=== PATIENT | female | born 1995 | race African-American/Black ===

== ENCOUNTER 2017-09-30 13:40 | Emergency (ER) | payer SELFPAY ==
[2017-09-30 14:00] VITALS: BP 147/94; PULSE 94; RESP 18; TEMP 97.9; O2SAT 97
--- NOTE | 2017-09-30 14:14 | EDPHY ---
H & P Stated Complaint: 1 week upper abd pain; also c/o cough causing back pain since Friday Time Seen by Provider: 09/30/17 13:52 HPI/ROS: Chief Complaint: Cough, abdominal pain HPI: 22-year-old woman who is visiting from [place] for the last 4 days. She has had some shortness of breath with a cough productive of some greenish sputum. She has also had some epigastric abdominal pain intermittently, primarily after she eats or when she lays down. 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 Does not feel like her pancreatitis pain. She is currently without any pain at this time. She has not been taking any medications. No fevers or chills. No nausea or vomiting or diarrhea. She is feeling slightly short of breath but has never been to this helped to before. No chest pain. Some mild upper back pain when she coughs. No wheezing. She has had ultrasounds and workup by the doctors at [place] to have not find a cause for her pancreatitis. My ROS PMH: Pancreatitis Social History: Positive smoking, occasional alcohol, no recreational drug use Family History: non-contributory Physical Exam: Gen: Awake, Alert, No Distress HEENT: Nose: no rhinorrhea Eyes: PERRLA, EOMI Mouth: Moist mucosa Neck: Supple, no JVD Chest: nontender, lungs clear to auscultation Heart: S1, S2 normal, no murmur Abd: Soft, non-tender, no guarding Back: no CVA tenderness, no midline tenderness Ext: no edema, non-tender Skin: no rash Neuro: CN II-XII intact, Sensation grossly intact, Strength 5/5 in bilateral upper and lower extremities - Personal History LMP (Females 10-55): Over 28 Days Ago Current Tetanus/Diphtheria Vaccine: No - Medical/Surgical History Other PMH: Pancreatitis - Social History Smoking Status: Never smoked Constitutional: Initial Vital Signs Temperature (C) 36.6 C 09/30/17 13:44 Heart Rate 94 09/30/17 13:44 Respiratory Rate 18 09/30/17 13:44 Blood Pressure 147/94 H 09/30/17 13:44 O2 Sat (%) 97 09/30/17 13:44 O2 Delivery Mode Room Air Allergies/Adverse Reactions: No Known Allergies Allergy (Unverified 09/30/17 13:48) Home Medications: Medication Instructions Recorded NK [No Known Home Meds] 09/30/17 Medical Decision Making ED Course/Re-evaluation: 22-year-old visiting from out of town with cough productive of greenish sputum and some epigastric abdominal pain. Lungs are clear. Vital signs and oxygen saturations are appropriate. No evidence of pneumonia at this time. She has not have any asthma or wheezing. Symptoms consistent with viral upper respiratory infection. He regards to her abdominal pain. Her abdomen is soft and benign. She has a history of pancreatitis in the past but does not have any symptoms to suggest this at this time. She is having pain primarily after she has her lays down. This is consistent more with a possible gastritis or peptic ulcer disease. She has had negative ultrasounds in the past year of her gallbladder. I have recommended that she treat her symptoms symptomatically. She is leaving town to return home tomorrow. I have recommended over-the- counter cough and cold medications. She should also start taking an over-the- counter antacid such as Pepcid to see if this helps her symptoms. She will follow up with her doctor when she returns home to [place]. Departure - Departure Disposition: Home, Routine, Self-Care Clinical Impression: Viral upper respiratory illness, GERD (gastroesophageal reflux disease) Condition: Good Instructions: Upper Respiratory Infection (ED), Gastroesophageal Reflux Disease (ED) Additional Instructions: You may take [id number] cough and cold medicine according to package instructions for your cough. Start taking [id number] antacid medications such as famotidine for your reflux symptoms. Follow up with a primary care physician when you return home to [place]. Return to the emergency department for increasing cough, fevers, chills, worsening constant abdominal pain, uncontrolled nausea or vomiting, or any other concerns.
== END 2017-09-30 14:26 | disposition home or self-care (01) ==
LOC: CED 13:40
DX: K21.9 Gastro-esophageal reflux disease without esophagitis (principal); J06.9 Acute upper respiratory infection, unspecified; F17.200 Nicotine dependence, unspecified, uncomplicated